=== PATIENT | female | born 1960 ===

== ENCOUNTER 2021-05-25 17:26 | Inpatient (IN) | payer SELFPAY ==
[~2021-05-25 17:26] MED LIST: Iopamidol-370 76% 500 ML 1 ML ONE
[2021-05-25] MEDS ORDERED: cefTRIAXone\\ROCEPHIN 2 GM VIAL ONE (17:56)
[2021-05-25] MEDS ORDERED: Azithromycin 500 MG VIAL ONE (17:56)
[2021-05-25 18:09] LABS: Hemoglobin 12.6 g/dL (12.0-16.0); Mean Corpuscular HGB CONC 33.2 g/dL (32.0-36.0); Mean Corpuscular Hemoglobin 29.1 pg (27.0-31.0); Mean Corpuscular Volume 87.6 fL (78.0-98.0); Mean Platelet Volume 8.6 fL (7.4-10.4); Platelet Count 389 thou/uL (130-400); RBC Distribution Width 12.4 % (11.5-14.5); Red Blood Cell (RBC) Count 4.33 mill/uL (4.20-5.40); White Blood Cell (WBC) Count 21.7 thou/uL (4.8-10.8)
[2021-05-25 18:18] LABS: ALT (SGPT) 11 U/L (8-55); AST (SGOT) 20 U/L (5-34); Albumin 3.9 g/dL (3.4-4.8); Alkaline Phosphatase 131 U/L (40-110); BUN (Urea Nitrogen) 29 mg/dL (9.8-20.1); Bilirubin, Total 0.3 mg/dL (0.2-1.2); Calc. Creatinine Clearance 0 mL/min (70-130); Calcium 10.8 mg/dL (7.8-10.44); Chloride 94 mmol/L (98-107); Globulin 5.2 g/dL (2.4-3.5); Glucose 429 mg/dL (80-115); Potassium 4.4 mmol/L (3.5-5.1); Protein, Total 9.1 g/dL (5.8-8.1); Sodium 130 mmol/L (136-145)
[2021-05-25 18:20] LABS: Carbon Dioxide Less than 8 mmol/L (23-31)
[2021-05-25 18:41] LABS: Band 24 % (5-11); Lymphocytes 7 % (21-51); MDiff Complete? YES; Metamyelocyte 4 % (0-0); Monocytes 7 % (0-10); Myelocyte 1 % (0-0); Neutrophil 56 % (42-75); Platelet Morphology Comment Appears Adequate; Polychromasia SLIGHT = 2-3 cells (100X) (0-2/hpf); Reactive Lymphocytes 1 % (0-10)
[2021-05-25 20:47] LABS: SARS-CoV-2 NAA Rapid Test Not Detected (NotDetected)
[2021-05-25 21:13] LABS: Lactic Acid 1.4 mmol/L (0.5-2.2)
[2021-05-25] MEDS ORDERED: NS 0.9% w/ 20 MEQ KCL 1,000 ML IV PRN ×3 (21:35→23:01)
[2021-05-25] MEDS ORDERED: Sodium Chloride 0.9% 1,000 ML IV PRN ×6 (21:35→23:01)
[2021-05-25] MEDS ORDERED: Electrolyte Replacement Protocol 1 EACH IVPB PRN ×2 (21:35→23:01)
[2021-05-25] MEDS ORDERED: Dextrose 5 %-0.45 % NaCl 1,000 ML IV PRN ×2 (21:35→23:01)
[2021-05-25] MEDS ORDERED: Vancomycin 1.5 GRAM/300 ML BAG 1.5 GM in Premix Bag 1 BAG IVPB SCH ×2 (21:38→22:15)
[2021-05-25] MEDS ORDERED: Acetaminophen 650 MG Suppository PR PRN (21:41)
[2021-05-25] MEDS ORDERED: Ondansetron PF 4 MG/2 ML Vial IVP PRN (21:41)
[2021-05-25] MEDS ORDERED: Ondansetron ODT 4 MG TAB PO PRN (21:41)
[2021-05-25] MEDS ORDERED: HUMULIN R 100 UNITS in Sodium Chloride 0.9% 100 ML IVPB SCH ×2 (21:45→23:15)
[2021-05-25] MEDS ORDERED: Meropenem 1 GM in Sodium Chloride 0.9% 100 ML IVPB SCH (22:00)
[2021-05-25] MEDS ORDERED: Rocuronium Bromide 10 MG/ML (10ML VIAL) ONE (22:04)
[2021-05-25 22:32] LABS: Actual Bicarbonate (HCO3a) 4.4 mEq/L (22-28); Analyzer IN Cardio ER; Base Excess (BEa) -25.9 mEq/L (-2.0 to +3.0); Calcium, Ionized (arterial) 1.31 mmol/L (1.12-1.30); Carboxyhemoglobin (COHb) 0.2 gm% (0.0-3.0); Hemoglobin (Hb) 11.7 g/dL (12.0-16.0); O2 Tension (PaO2), arterial 100.5 mmHg (> 80.0); Potassium - ABG Lab 4.31 mmol/L (3.70-5.30)
[2021-05-25 22:34] LABS: ALV-art Gradient 102.785 mmHg (0-20); CO2 Tension 19.9 mmHg (35.0-45.0); Puncture Site RRA; pH, Arterial 6.97 (7.35-7.45)
[2021-05-25 22:58] LABS: BUN (Urea Nitrogen) 29 mg/dL (9.8-20.1); Calc. Creatinine Clearance 0 mL/min (70-130); Calcium 9.6 mg/dL (7.8-10.44); Chloride 100 mmol/L (98-107); Glucose 448 mg/dL (80-115); Magnesium 2.7 mg/dL (1.6-2.6); Phosphorus 6.2 mg/dL (2.3-4.7); Potassium 4.6 mmol/L (3.5-5.1); Sodium 131 mmol/L (136-145)
[2021-05-25] MEDS ORDERED: Sodium Bicarbonate 150 MEQ in Sodium Chloride 0.45% 1,000 ML IV SCH (23:00)
[2021-05-25] MEDS ORDERED: D5 1/2 NS w/20 mEq KCL 1,000 ML IV PRN (23:01)
[2021-05-25 23:02] LABS: Carbon Dioxide Less than 8 mmol/L (23-31)
[2021-05-25] MEDS ORDERED: Sodium Bicarb 50 MEQ/50 ML Abboject 8.4% SYRINGE IVP SCH (23:15)
[2021-05-25] MEDS ORDERED: Morphine 2 MG/ML VIAL SLOW IVP PRN (23:30)
[2021-05-25] MEDS ORDERED: Fentanyl BOLUS 250 ML IVPB PRN (23:30)
[2021-05-25] MEDS ORDERED: Propofol BOLUS 1,000 MG/100 ML VIAL IV PRN (23:30)
[2021-05-25] MEDS: Propofol 1,000 MG/100 ML VIAL IV PRN (23:47)
[2021-05-25] MEDS: NS 0.9% w/ 20 MEQ KCL 1,000 ML IV PRN (23:48)
[2021-05-26 01:16] LABS: Actual Bicarbonate (HCO3a) 7.7 mEq/L (22-28); Base Excess (BEa) -22.6 mEq/L (-2.0 to +3.0); CO2 Tension 32.3 mmHg (35.0-45.0); Calcium, Ionized (arterial) 1.29 mmol/L (1.12-1.30); Hemoglobin (Hb) 11.2 g/dL (12.0-16.0); O2 Tension (PaO2), arterial 213.2 mmHg (> 80.0); Potassium - ABG Lab 3.59 mmol/L (3.70-5.30)
[2021-05-26 01:17] LABS: pH, Arterial 6.99 (7.35-7.45)
[2021-05-26 01:18] LABS: ALV-art Gradient 174.225 mmHg (0-20); Puncture Site LRA
[2021-05-26 01:50] LABS: BUN (Urea Nitrogen) 27 mg/dL (9.8-20.1); Calc. Creatinine Clearance 39 mL/min (70-130); Calcium 9.4 mg/dL (7.8-10.44); Chloride 105 mmol/L (98-107); Glucose 357 mg/dL (80-115); Potassium 3.3 mmol/L (3.5-5.1); Sodium 135 mmol/L (136-145)
[2021-05-26 01:54] LABS: Carbon Dioxide Less than 8 mmol/L (23-31)
[2021-05-26] MEDS: NS 0.9% w/ 20 MEQ KCL 1,000 ML IV PRN (02:05)
[2021-05-26] MEDS ORDERED: Sodium Bicarb 50 MEQ/50 ML Abboject 8.4% SYRINGE IVP SCH (02:15)
[2021-05-26] MEDS ORDERED: Potassium Chloride 40 MEQ in Premix Bag 1 BAG IVPB SCH ×2 (02:30→04:45)
[2021-05-26 04:10] LABS: Anion Gap 27 mmol/L (10-20); BUN (Urea Nitrogen) 27 mg/dL (9.8-20.1); Calc. Creatinine Clearance 42 mL/min (70-130); Calcium 9.1 mg/dL (7.8-10.44); Chloride 107 mmol/L (98-107); Glucose 274 mg/dL (80-115); Potassium 3.4 mmol/L (3.5-5.1); Sodium 139 mmol/L (136-145)
[2021-05-26 04:13] LABS: Carbon Dioxide 8 mmol/L (23-31)
[2021-05-26 04:23] LABS: Hemoglobin 11.2 g/dL (12.0-16.0); Mean Corpuscular HGB CONC 32.4 g/dL (32.0-36.0); Mean Corpuscular Hemoglobin 28.3 pg (27.0-31.0); Mean Corpuscular Volume 87.4 fL (78.0-98.0); Mean Platelet Volume 8.3 fL (7.4-10.4); Platelet Count 257 thou/uL (130-400); RBC Distribution Width 12.4 % (11.5-14.5); Red Blood Cell (RBC) Count 3.96 mill/uL (4.20-5.40); White Blood Cell (WBC) Count 16.1 thou/uL (4.8-10.8)
[2021-05-26 04:35] LABS: Bacteria/HPF None Seen HPF (None Seen); Bilirubin Negative (Negative); Blood, Urine 2+ (Negative); Clarity Clear (Clear); Glucose, Urine (Dipstick) Greater than 1000 mg/dL (Negative); Ketone, Urine Greater than 150 mg/dL (Negative); Leukocyte Negative Leu/uL (Negative); Nitrite Negative (Negative); Protein, Urine (Dipstick) 50 mg/dL (Neg-Trace); RBC/HPF 0-3 HPF (0-3); Specific Gravity, Urine 1.026 (1.002-1.036); Squamous Epithelial 0-3 HPF (0-3); Urobilinogen Normal mg/dL (Less than 2); WBC/HPF 0-3 HPF (0-3)
[2021-05-26 04:41] LABS: Urine Culture Reflex No No
[2021-05-26 05:29] LABS: Band 30 % (5-11); Lymphocytes 13 % (21-51); MDiff Complete? YES; Monocytes 4 % (0-10); Neutrophil 53 % (42-75)
[2021-05-26 05:34] LABS: Anion Gap 26 mmol/L (10-20); BUN (Urea Nitrogen) 27 mg/dL (9.8-20.1); Calc. Creatinine Clearance 43 mL/min (70-130); Calcium 8.9 mg/dL (7.8-10.44); Chloride 108 mmol/L (98-107); Glucose 240 mg/dL (80-115); Potassium 3.3 mmol/L (3.5-5.1); Sodium 140 mmol/L (136-145)
[2021-05-26] MEDS: Propofol 1,000 MG/100 ML VIAL IV PRN ×4 (05:35→22:01)
[2021-05-26 05:38] LABS: Carbon Dioxide 9 mmol/L (23-31)
[2021-05-26 07:17] LABS: Actual Bicarbonate (HCO3a) 12.7 mEq/L (22-28); Base Excess (BEa) -14.2 mEq/L (-2.0 to +3.0); CO2 Tension 33.5 mmHg (35.0-45.0); Calcium, Ionized (arterial) 1.22 mmol/L (1.12-1.30); Carboxyhemoglobin (COHb) 0.1 gm% (0.0-3.0); Hemoglobin (Hb) 10.5 g/dL (12.0-16.0); O2 Tension (PaO2), arterial 109.6 mmHg (> 80.0); Potassium - ABG Lab 3.73 mmol/L (3.70-5.30)
[2021-05-26 07:49] LABS: ALV-art Gradient 133.725 mmHg (0-20); Puncture Site LRA
[2021-05-26] MEDS ORDERED: Metoprolol Tartrate 5 MG/5 ML VIAL ONE (07:49)
[2021-05-26] MEDS ORDERED: Sodium Chloride 0.9% 1,000 ML IV SCH (08:15)
[2021-05-26] MEDS ORDERED: Metoprolol Tartrate 5 MG/5 ML VIAL IVP SCH (08:15)
[2021-05-26] MEDS ORDERED: Potassium Chloride 20 MEQ TAB PO SCH (08:15)
[2021-05-26] MEDS: D5 1/2 NS w/20 mEq KCL 1,000 ML IV PRN ×3 (08:55→17:38)
[2021-05-26] MEDS ORDERED: Cefepime 1 GM in Sodium Chloride 0.9% 100 ML IVPB SCH (09:00)
[2021-05-26] MEDS ORDERED: FLU VACC QS2021-22(6MOS UP)/PF 60 MCG/0.5 ML SYRINGE IM ONE (09:00)
[2021-05-26] MEDS: Enoxaparin Sodium 30 MG/0.3 ML SYRINGE SC SCH (09:02)
[2021-05-26 11:39] LABS: Anion Gap 19 mmol/L (10-20); BUN (Urea Nitrogen) 25 mg/dL (9.8-20.1); Calc. Creatinine Clearance 49 mL/min (70-130); Calcium 8.9 mg/dL (7.8-10.44); Carbon Dioxide 13 mmol/L (23-31); Chloride 112 mmol/L (98-107); Glucose 239 mg/dL (80-115); Potassium 4.1 mmol/L (3.5-5.1); Sodium 140 mmol/L (136-145)
[2021-05-26] MEDS ORDERED: CEFEPIME IVPB PRN (11:39)
[2021-05-26] MEDS: Diltiazem 125 MG in Sodium Chloride 0.9% 100 ML IVPB SCH (11:51)
[2021-05-26 11:53] LABS: Magnesium 2.2 mg/dL (1.6-2.6)
[2021-05-26] MEDS ORDERED: Meropenem 500 MG in Sodium Chloride 0.9% 100 ML IVPB SCH (13:00)
[2021-05-26 13:58] LABS: Anion Gap 17 mmol/L (10-20); BUN (Urea Nitrogen) 24 mg/dL (9.8-20.1); Calc. Creatinine Clearance 53 mL/min (70-130); Calcium 8.9 mg/dL (7.8-10.44); Carbon Dioxide 13 mmol/L (23-31); Chloride 114 mmol/L (98-107); Glucose 220 mg/dL (80-115); Potassium 4.3 mmol/L (3.5-5.1); Sodium 140 mmol/L (136-145)
[2021-05-26 17:39] LABS: Anion Gap 15 mmol/L (10-20); BUN (Urea Nitrogen) 21 mg/dL (9.8-20.1); Calc. Creatinine Clearance 60 mL/min (70-130); Calcium 8.7 mg/dL (7.8-10.44); Carbon Dioxide 15 mmol/L (23-31); Chloride 115 mmol/L (98-107); Glucose 180 mg/dL (80-115); Potassium 4.6 mmol/L (3.5-5.1); Sodium 140 mmol/L (136-145)
[2021-05-26] MEDS: Azithromycin 500 MG in Sodium Chloride 0.9% 250 ML 250 ML IVPB SCH (17:46)
[2021-05-26] MEDS ORDERED: Dextrose 50% Abboject 50 ML SYRINGE SLOW IVP PRN (18:14)
[2021-05-26] MEDS ORDERED: Dextrose 5% in Water 1,000 ML IV PRN (18:14)
[2021-05-26] MEDS ORDERED: Sodium Bicarbonate Tab 325 MG TAB PER TUBE PRN (18:15)
[2021-05-26] MEDS ORDERED: Pancrelipase DR 12,000 1 CAP FS PRN (18:15)
[2021-05-26] MEDS: Amiodarone 450 MG in Dextrose 5% in Water 250 ML IVPB SCH (18:20)
[2021-05-26] MEDS: D5 1/2 NS w/20 mEq KCL 1,000 ML IV SCH (18:25)
[2021-05-26] MEDS: Lantus 1000 UNITS/10 ML VIAL SC SCH ×2 (20:18→20:26)
[2021-05-26] MEDS: HumaLOG 300 UNITS/3 ML VIAL SC PRN ×2 (20:26→23:57)
[2021-05-26] MEDS: Acetaminophen 325 MG TAB PO PRN (20:26)
[2021-05-26] MEDS: fentaNYL Citrate/PF 2,000 MCG in Sodium Chloride 0.9% 60 ML IV SCH (21:41)
[2021-05-26] MEDS: Lorazepam 2 MG/ML VIAL SLOW IVP PRN (21:55)
[2021-05-26] MEDS: Vancomycin HCl 750 MG in Sodium Chloride 0.9% 250 ML 250 ML IVPB SCH (23:57)
[2021-05-27] MEDS: Diltiazem 125 MG in Sodium Chloride 0.9% 100 ML IVPB SCH (00:35)
[2021-05-27] MEDS: Amiodarone 450 MG in Dextrose 5% in Water 250 ML IVPB SCH ×2 (03:20→18:41)
[2021-05-27] MEDS: Propofol 1,000 MG/100 ML VIAL IV PRN ×4 (03:53→21:29)
[2021-05-27] MEDS: D5 1/2 NS w/20 mEq KCL 1,000 ML IV SCH (03:57)
[2021-05-27 04:16] LABS: Anion Gap 16 mmol/L (10-20); BUN (Urea Nitrogen) 21 mg/dL (9.8-20.1); Calc. Creatinine Clearance 54 mL/min (70-130); Calcium 8.5 mg/dL (7.8-10.44); Carbon Dioxide 13 mmol/L (23-31); Chloride 111 mmol/L (98-107); Glucose 387 mg/dL (80-115); Potassium 4.9 mmol/L (3.5-5.1); Sodium 135 mmol/L (136-145)
[2021-05-27] MEDS: HumaLOG 300 UNITS/3 ML VIAL SC PRN ×5 (04:47→23:56)
[2021-05-27] MEDS: Lactated Ringer's 1,000 ML IV SCH ×3 (07:48→23:57)
[2021-05-27 07:49] LABS: Hemoglobin 9.7 g/dL (12.0-16.0); Mean Corpuscular HGB CONC 33.8 g/dL (32.0-36.0); Mean Corpuscular Hemoglobin 28.6 pg (27.0-31.0); Mean Corpuscular Volume 84.8 fL (78.0-98.0); Mean Platelet Volume 8.4 fL (7.4-10.4); Platelet Count 269 thou/uL (130-400); RBC Distribution Width 12.8 % (11.5-14.5); Red Blood Cell (RBC) Count 3.37 mill/uL (4.20-5.40)
[2021-05-27] MEDS: Pantoprazole 40 MG VIAL IVP SCH (08:25)
[2021-05-27] MEDS: Enoxaparin Sodium 30 MG/0.3 ML SYRINGE SC SCH (08:25)
[2021-05-27] MEDS: Lantus 1000 UNITS/10 ML VIAL SC SCH ×2 (08:27→21:24)
[2021-05-27 08:52] LABS: Band 42 % (5-11); Lymphocytes 2 % (21-51); MDiff Complete? YES; Monocytes 3 % (0-10); Neutrophil 53 % (42-75); Platelet Morphology Comment Appears Adequate; Polychromasia SLIGHT = 2-3 cells (100X) (0-2/hpf); Vacuoles SLIGHT
[2021-05-27] MEDS ORDERED: Cefepime 1 GM in Sodium Chloride 0.9% 100 ML IVPB SCH (09:00)
[2021-05-27 10:40] LABS: Hemoglobin 9.7 g/dL (12.0-16.0); Platelet Count 279 thou/uL (130-400)
[2021-05-27] MEDS: Communication Order-Pharmacy FS SCH (11:13)
[2021-05-27 13:28] LABS: Anion Gap 12 mmol/L (10-20); BUN (Urea Nitrogen) 20 mg/dL (9.8-20.1); Calc. Creatinine Clearance 71 mL/min (70-130); Calcium 9.2 mg/dL (7.8-10.44); Carbon Dioxide 16 mmol/L (23-31); Chloride 112 mmol/L (98-107); Glucose 327 mg/dL (80-115); Potassium 4.3 mmol/L (3.5-5.1); Sodium 136 mmol/L (136-145)
[2021-05-27] MEDS: Lorazepam 2 MG/ML VIAL SLOW IVP PRN (13:50)
[2021-05-27] MEDS: fentaNYL Citrate/PF 2,000 MCG in Sodium Chloride 0.9% 60 ML IV SCH (16:20)
[2021-05-27] MEDS: Azithromycin 500 MG in Sodium Chloride 0.9% 250 ML 250 ML IVPB SCH (17:04)
[2021-05-27] MEDS: Enoxaparin Sodium 100 MG/ML SYRINGE SC SCH (21:22)
[2021-05-27] MEDS: Vancomycin HCl 750 MG in Sodium Chloride 0.9% 250 ML 250 ML IVPB SCH (23:57)
[2021-05-28] MEDS ORDERED: Vancomycin HCl 500 MG in Sodium Chloride 0.9% 100 ML IVPB SCH (01:15)
[2021-05-28] MEDS: Diltiazem 125 MG in Sodium Chloride 0.9% 100 ML IVPB SCH ×2 (01:57→11:52)
[2021-05-28] MEDS: Propofol 1,000 MG/100 ML VIAL IV PRN ×4 (03:06→20:32)
[2021-05-28 03:51] LABS: Anion Gap 10 mmol/L (10-20); BUN (Urea Nitrogen) 19 mg/dL (9.8-20.1); Calc. Creatinine Clearance 86 mL/min (70-130); Calcium 8.8 mg/dL (7.8-10.44); Carbon Dioxide 20 mmol/L (23-31); Chloride 111 mmol/L (98-107); Glucose 245 mg/dL (80-115); Potassium 4.3 mmol/L (3.5-5.1); Sodium 137 mmol/L (136-145)
[2021-05-28] MEDS: HumaLOG 300 UNITS/3 ML VIAL SC PRN ×4 (03:56→20:45)
[2021-05-28 05:32] LABS: Band 35 % (5-11); Lymphocytes 3 % (21-51); MDiff Complete? YES; Mean Corpuscular HGB CONC 32.6 g/dL (32.0-36.0); Mean Corpuscular Volume 85.8 fL (78.0-98.0); Monocytes 2 % (0-10); Neutrophil 60 % (42-75); Platelet Count 295 thou/uL (130-400); RBC Distribution Width 13.1 % (11.5-14.5); Red Blood Cell (RBC) Count 3.21 mill/uL (4.20-5.40); White Blood Cell (WBC) Count 31.3 thou/uL (4.8-10.8)
[2021-05-28] MEDS: Lactated Ringer's 1,000 ML IV SCH ×3 (09:12→16:11)
[2021-05-28] MEDS: Cefepime 1 GM in Sodium Chloride 0.9% 100 ML IVPB SCH ×2 (09:15→20:28)
[2021-05-28] MEDS: Pantoprazole 40 MG VIAL IVP SCH (09:15)
[2021-05-28] MEDS: Lantus 1000 UNITS/10 ML VIAL SC SCH ×2 (09:16→20:45)
[2021-05-28] MEDS: Enoxaparin Sodium 100 MG/ML SYRINGE SC SCH ×2 (09:16→20:28)
[2021-05-28] MEDS: Communication Order-Pharmacy FS SCH (10:20)
[2021-05-28] MEDS: fentaNYL Citrate/PF 2,000 MCG in Sodium Chloride 0.9% 60 ML IV SCH (12:26)
[2021-05-28] MEDS ORDERED: Dextrose 5% in Water 1,000 ML IV PRN (12:47)
[2021-05-28] MEDS ORDERED: Dextrose 50% Abboject 50 ML SYRINGE SLOW IVP PRN (12:47)
[2021-05-28] MEDS: Azithromycin 500 MG in Sodium Chloride 0.9% 250 ML 250 ML IVPB SCH (17:43)
[2021-05-28] MEDS: Lorazepam 2 MG/ML VIAL SLOW IVP PRN (22:14)
[2021-05-29] MEDS: Lactated Ringer's 1,000 ML IV SCH ×3 (01:36→11:19)
[2021-05-29] MEDS: Vancomycin HCl 1.25 GM in Sodium Chloride 0.9% 250 ML 250 ML IVPB SCH (01:36)
[2021-05-29] MEDS: Propofol 1,000 MG/100 ML VIAL IV PRN ×2 (02:59→09:11)
[2021-05-29] MEDS: Diltiazem 125 MG in Sodium Chloride 0.9% 100 ML IVPB SCH ×2 (03:02→14:51)
[2021-05-29 04:55] LABS: Hemoglobin 8.3 g/dL (12.0-16.0); Mean Corpuscular HGB CONC 32.5 g/dL (32.0-36.0); Mean Corpuscular Hemoglobin 28.4 pg (27.0-31.0); Mean Corpuscular Volume 87.3 fL (78.0-98.0); Mean Platelet Volume 8.3 fL (7.4-10.4); Platelet Count 293 thou/uL (130-400); RBC Distribution Width 13.4 % (11.5-14.5); Red Blood Cell (RBC) Count 2.93 mill/uL (4.20-5.40); White Blood Cell (WBC) Count 23.7 thou/uL (4.8-10.8)
[2021-05-29 05:13] LABS: Anion Gap 12 mmol/L (10-20); BUN (Urea Nitrogen) 13 mg/dL (9.8-20.1); Calc. Creatinine Clearance 116 mL/min (70-130); Calcium 8.7 mg/dL (7.8-10.44); Carbon Dioxide 21 mmol/L (23-31); Chloride 110 mmol/L (98-107); Glucose 144 mg/dL (80-115); Potassium 3.9 mmol/L (3.5-5.1); Sodium 139 mmol/L (136-145)
[2021-05-29] MEDS: Lorazepam 2 MG/ML VIAL SLOW IVP PRN ×2 (05:13→13:23)
[2021-05-29 05:31] LABS: Band 27 % (5-11); Lymphocytes 7 % (21-51); MDiff Complete? YES; Monocytes 3 % (0-10); Myelocyte 2 % (0-0); Neutrophil 61 % (42-75)
[2021-05-29 07:57] LABS: Base Excess (BEa) -2.5 mEq/L (-2.0 to +3.0); CO2 Tension 36.8 mmHg (35.0-45.0); Calcium, Ionized (arterial) 1.26 mmol/L (1.12-1.30); Carboxyhemoglobin (COHb) 0.2 gm% (0.0-3.0); Hemoglobin (Hb) 8.8 g/dL (12.0-16.0); O2 Tension (PaO2), arterial 80.6 mmHg (> 80.0); Potassium - ABG Lab 3.93 mmol/L (3.70-5.30)
[2021-05-29 08:07] LABS: Puncture Site LRA
[2021-05-29 09:00] LABS: Legionella Urinary Ag Negative (Negative)
[2021-05-29 09:01] LABS: Strep pneumo Urine Ag NEGATIVE (NEGATIVE)
[2021-05-29] MEDS: Cefepime 1 GM in Sodium Chloride 0.9% 100 ML IVPB SCH ×2 (09:03→20:27)
[2021-05-29] MEDS: Pantoprazole 40 MG VIAL IVP SCH (09:04)
[2021-05-29] MEDS: Enoxaparin Sodium 100 MG/ML SYRINGE SC SCH ×2 (09:04→20:26)
[2021-05-29] MEDS: HumaLOG 300 UNITS/3 ML VIAL SC PRN ×2 (09:05→12:52)
[2021-05-29] MEDS: Lantus 1000 UNITS/10 ML VIAL SC SCH ×2 (09:05→20:28)
[2021-05-29] MEDS: Communication Order-Pharmacy FS SCH (09:22)
[2021-05-29 12:17] LABS: SARS-CoV-2 PCR by NAA Not Detected (NotDetected)
[2021-05-29] MEDS: Amiodarone 450 MG in Dextrose 5% in Water 250 ML IVPB SCH (14:51)
[2021-05-29] MEDS: fentaNYL Citrate/PF 2,000 MCG in Sodium Chloride 0.9% 60 ML IV SCH (14:54)
[2021-05-29 15:58] LABS: SARS-CoV-2 IgG Spike Ab Interp Reactive (NonReactive)
[2021-05-29] MEDS: Azithromycin 500 MG in Sodium Chloride 0.9% 250 ML 250 ML IVPB SCH (17:02)
[2021-05-29] MEDS: Amiodarone 200 MG TAB PO SCH (20:27)
[2021-05-29] MEDS ORDERED: Lactated Ringer's 1,000 ML IV SCH (20:48)
[2021-05-29] MEDS ORDERED: Furosemide 40 MG/4 ML VIAL IVP SCH (21:00)
[2021-05-30] MEDS: Vancomycin HCl 1.25 GM in Sodium Chloride 0.9% 250 ML 250 ML IVPB SCH (02:16)
[2021-05-30 04:35] LABS: Anion Gap 9 mmol/L (10-20); BUN (Urea Nitrogen) 12 mg/dL (9.8-20.1); Calc. Creatinine Clearance 121 mL/min (70-130); Calcium 9.3 mg/dL (7.8-10.44); Carbon Dioxide 28 mmol/L (23-31); Chloride 106 mmol/L (98-107); Glucose 76 mg/dL (80-115); Potassium 3.5 mmol/L (3.5-5.1); Sodium 139 mmol/L (136-145)
[2021-05-30 05:05] LABS: Band 9 % (5-11); Eosinophils 1 % (0-10); Lymphocytes 6 % (21-51); MDiff Complete? YES; Mean Corpuscular HGB CONC 30.7 g/dL (32.0-36.0); Mean Corpuscular Hemoglobin 26.6 pg (27.0-31.0); Mean Corpuscular Volume 86.7 fL (78.0-98.0); Monocytes 7 % (0-10); Myelocyte 1 % (0-0); Neutrophil 76 % (42-75); Platelet Count 327 thou/uL (130-400); Platelet Morphology Comment Appears Adequate; RBC Morphology Normal; Red Blood Cell (RBC) Count 3.37 mill/uL (4.20-5.40); White Blood Cell (WBC) Count 16.2 thou/uL (4.8-10.8)
[2021-05-30 05:09] LABS: Vancomycin, Trough 42.7 ug/mL
[2021-05-30] MEDS ORDERED: Potassium Chloride 40 MEQ in Sodium Chloride 0.9% 250 ML 250 ML IVPB SCH (06:30)
[2021-05-30] MEDS: Furosemide 40 MG/4 ML VIAL SLOW IVP SCH ×2 (06:53→14:59)
[2021-05-30] MEDS: Cefepime 1 GM in Sodium Chloride 0.9% 100 ML IVPB SCH ×2 (08:46→21:22)
[2021-05-30] MEDS: Amiodarone 200 MG TAB PO SCH ×2 (08:46→21:23)
[2021-05-30] MEDS: Enoxaparin Sodium 100 MG/ML SYRINGE SC SCH ×2 (08:47→21:23)
[2021-05-30] MEDS: Pantoprazole 40 MG VIAL IVP SCH (08:48)
[2021-05-30] MEDS: Lantus 1000 UNITS/10 ML VIAL SC SCH ×2 (09:43→21:25)
[2021-05-30] MEDS: Communication Order-Pharmacy FS SCH (14:59)
[2021-05-30] MEDS: Azithromycin 500 MG in Sodium Chloride 0.9% 250 ML 250 ML IVPB SCH (17:43)
[2021-05-31 01:07] LABS: Vancomycin, Trough 15.3 ug/mL
[2021-05-31] MEDS: Vancomycin HCl 1.25 GM in Sodium Chloride 0.9% 250 ML 250 ML IVPB SCH (02:09)
[2021-05-31 04:36] LABS: Anion Gap 13 mmol/L (10-20); BUN (Urea Nitrogen) 18 mg/dL (9.8-20.1); Calc. Creatinine Clearance 99 mL/min (70-130); Calcium 8.8 mg/dL (7.8-10.44); Carbon Dioxide 28 mmol/L (23-31); Chloride 102 mmol/L (98-107); Glucose 105 mg/dL (80-115); Potassium 3.7 mmol/L (3.5-5.1); Sodium 139 mmol/L (136-145)
[2021-05-31 05:05] LABS: Band 5 % (5-11); Hemoglobin 8.6 g/dL (12.0-16.0); Lymphocytes 8 % (21-51); MDiff Complete? YES; Mean Corpuscular HGB CONC 32.2 g/dL (32.0-36.0); Mean Corpuscular Volume 86.9 fL (78.0-98.0); Mean Platelet Volume 7.9 fL (7.4-10.4); Monocytes 7 % (0-10); Myelocyte 4 % (0-0); Neutrophil 76 % (42-75); Platelet Count 317 thou/uL (130-400); Platelet Morphology Comment Appears Adequate; RBC Distribution Width 12.8 % (11.5-14.5); RBC Morphology Normal; Red Blood Cell (RBC) Count 3.07 mill/uL (4.20-5.40); White Blood Cell (WBC) Count 13.2 thou/uL (4.8-10.8)
[2021-05-31] MEDS: Furosemide 40 MG/4 ML VIAL SLOW IVP SCH ×2 (05:05→14:40)
[2021-05-31 07:31] LABS: Base Excess (BEa) 8.4 mEq/L (-2.0 to +3.0); CO2 Tension 40.8 mmHg (35.0-45.0); Calcium, Ionized (arterial) 1.15 mmol/L (1.12-1.30); Carboxyhemoglobin (COHb) 0.4 gm% (0.0-3.0); O2 Tension (PaO2), arterial 97.8 mmHg (> 80.0); Potassium - ABG Lab 3.83 mmol/L (3.70-5.30); pH, Arterial 7.51 (7.35-7.45)
[2021-05-31 07:42] LABS: Puncture Site LRA
[2021-05-31] MEDS: Amiodarone 200 MG TAB PO SCH ×2 (08:48→20:48)
[2021-05-31] MEDS: Cefepime 1 GM in Sodium Chloride 0.9% 100 ML IVPB SCH ×2 (08:48→20:48)
[2021-05-31] MEDS: Enoxaparin Sodium 100 MG/ML SYRINGE SC SCH ×2 (08:49→20:48)
[2021-05-31] MEDS: Pantoprazole 40 MG VIAL IVP SCH (08:49)
[2021-05-31] MEDS: Lantus 1000 UNITS/10 ML VIAL SC SCH ×2 (08:50→21:45)
[2021-05-31] MEDS: Communication Order-Pharmacy FS SCH (14:37)
[2021-06-01 04:02] LABS: Anion Gap 11 mmol/L (10-20); BUN (Urea Nitrogen) 23 mg/dL (9.8-20.1); Calc. Creatinine Clearance 87 mL/min (70-130); Carbon Dioxide 35 mmol/L (23-31); Chloride 96 mmol/L (98-107); Glucose 142 mg/dL (80-115); Potassium 3.2 mmol/L (3.5-5.1); Sodium 139 mmol/L (136-145)
[2021-06-01 04:12] LABS: Band 3 % (5-11); Eosinophils 3 % (0-10); Hemoglobin 8.9 g/dL (12.0-16.0); Lymphocytes 15 % (21-51); MDiff Complete? YES; Mean Corpuscular HGB CONC 32.8 g/dL (32.0-36.0); Mean Corpuscular Hemoglobin 28.5 pg (27.0-31.0); Mean Corpuscular Volume 86.9 fL (78.0-98.0); Mean Platelet Volume 7.6 fL (7.4-10.4); Monocytes 10 % (0-10); Myelocyte 3 % (0-0); Neutrophil 66 % (42-75); Platelet Count 321 thou/uL (130-400); Platelet Morphology Comment Appears Adequate; RBC Distribution Width 12.4 % (11.5-14.5); RBC Morphology Normal; Red Blood Cell (RBC) Count 3.11 mill/uL (4.20-5.40); White Blood Cell (WBC) Count 10.1 thou/uL (4.8-10.8)
[2021-06-01] MEDS ORDERED: Potassium Bicarbonate/Cit Ac 20 MEQ TAB PER TUBE SCH (05:00)
[2021-06-01] MEDS: Furosemide 40 MG/4 ML VIAL SLOW IVP SCH ×2 (05:06→13:13)
[2021-06-01] MEDS: Communication Order-Pharmacy FS SCH (07:17)
[2021-06-01 07:42] LABS: Actual Bicarbonate (HCO3a) 35.8 mEq/L (22-28); Base Excess (BEa) 12.2 mEq/L (-2.0 to +3.0); CO2 Tension 42.4 mmHg (35.0-45.0); Carboxyhemoglobin (COHb) 0.5 gm% (0.0-3.0); Hemoglobin (Hb) 8.5 g/dL (12.0-16.0); O2 Tension (PaO2), arterial 102.3 mmHg (> 80.0); Potassium - ABG Lab 3.58 mmol/L (3.70-5.30); pH, Arterial 7.54 (7.35-7.45)
[2021-06-01 07:54] LABS: Puncture Site LRA
[2021-06-01] MEDS: Cefepime 1 GM in Sodium Chloride 0.9% 100 ML IVPB SCH ×2 (08:34→20:14)
[2021-06-01] MEDS: Pantoprazole 40 MG VIAL IVP SCH (08:37)
[2021-06-01] MEDS: Enoxaparin Sodium 100 MG/ML SYRINGE SC SCH ×2 (08:37→20:13)
[2021-06-01] MEDS: Amiodarone 200 MG TAB PO SCH ×2 (08:38→20:13)
[2021-06-01] MEDS: Lantus 1000 UNITS/10 ML VIAL SC SCH ×2 (08:38→20:30)
[2021-06-01] MEDS: HumaLOG 300 UNITS/3 ML VIAL SC PRN (10:42)
[2021-06-01] MEDS ORDERED: Potassium Chloride 40 MEQ in Sodium Chloride 0.9% 250 ML 250 ML IVPB SCH (14:00)
[2021-06-02 01:16] LABS: Vancomycin, Trough 8.7 ug/mL
[2021-06-02] MEDS: Acetaminophen 325 MG TAB PO PRN ×2 (04:40→09:02)
[2021-06-02 04:57] LABS: Band 1 % (5-11); Eosinophils 6 % (0-10); Hemoglobin 8.7 g/dL (12.0-16.0); Lymphocytes 11 % (21-51); MDiff Complete? YES; Mean Corpuscular Hemoglobin 28.3 pg (27.0-31.0); Mean Corpuscular Volume 88.4 fL (78.0-98.0); Mean Platelet Volume 7.9 fL (7.4-10.4); Monocytes 12 % (0-10); Myelocyte 3 % (0-0); Neutrophil 67 % (42-75); Platelet Count 349 thou/uL (130-400); Platelet Morphology Comment Appears Adequate; RBC Distribution Width 12.7 % (11.5-14.5); RBC Morphology Normal; Red Blood Cell (RBC) Count 3.06 mill/uL (4.20-5.40); White Blood Cell (WBC) Count 11.9 thou/uL (4.8-10.8)
[2021-06-02 05:00] LABS: Anion Gap 13 mmol/L (10-20); BUN (Urea Nitrogen) 27 mg/dL (9.8-20.1); Calc. Creatinine Clearance 80 mL/min (70-130); Calcium 9.4 mg/dL (7.8-10.44); Carbon Dioxide 35 mmol/L (23-31); Chloride 92 mmol/L (98-107); Glucose 100 mg/dL (80-115); Potassium 3.8 mmol/L (3.5-5.1); Sodium 136 mmol/L (136-145)
[2021-06-02] MEDS: Furosemide 40 MG/4 ML VIAL SLOW IVP SCH ×2 (06:05→13:54)
[2021-06-02 08:37] LABS: SARS-CoV-2 PCR by NAA Not Detected (NotDetected)
[2021-06-02] MEDS: Amiodarone 200 MG TAB PO SCH ×2 (09:00→20:44)
[2021-06-02] MEDS: Cefepime 1 GM in Sodium Chloride 0.9% 100 ML IVPB SCH (09:03)
[2021-06-02] MEDS: Enoxaparin Sodium 100 MG/ML SYRINGE SC SCH ×2 (09:04→20:44)
[2021-06-02] MEDS: Pantoprazole 40 MG VIAL IVP SCH (09:05)
[2021-06-02] MEDS: Lantus 1000 UNITS/10 ML VIAL SC SCH ×2 (09:05→21:00)
[2021-06-02] MEDS: Communication Order-Pharmacy FS SCH (13:54)
[2021-06-02] MEDS: HumaLOG 300 UNITS/3 ML VIAL SC PRN (16:32)
[2021-06-02] MEDS: Metoprolol Tartrate 25 MG TAB PO SCH (16:41)
[2021-06-03] MEDS: Metoprolol Tartrate 25 MG TAB PO SCH ×5 (00:49→23:31)
[2021-06-03 04:07] LABS: Anion Gap 15 mmol/L (10-20); BUN (Urea Nitrogen) 23 mg/dL (9.8-20.1); Calc. Creatinine Clearance 71 mL/min (70-130); Calcium 9.4 mg/dL (7.8-10.44); Carbon Dioxide 35 mmol/L (23-31); Chloride 91 mmol/L (98-107); Glucose 187 mg/dL (80-115); Potassium 3.8 mmol/L (3.5-5.1); Sodium 137 mmol/L (136-145)
[2021-06-03 04:16] LABS: Band 7 % (5-11); Eosinophils 3 % (0-10); Hemoglobin 8.7 g/dL (12.0-16.0); Lymphocytes 13 % (21-51); MDiff Complete? YES; Mean Corpuscular HGB CONC 32.8 g/dL (32.0-36.0); Mean Corpuscular Hemoglobin 28.8 pg (27.0-31.0); Mean Corpuscular Volume 87.8 fL (78.0-98.0); Mean Platelet Volume 7.7 fL (7.4-10.4); Monocytes 9 % (0-10); Myelocyte 4 % (0-0); Neutrophil 64 % (42-75); Platelet Count 368 thou/uL (130-400); Platelet Morphology Comment Appears Adequate; RBC Distribution Width 12.4 % (11.5-14.5); RBC Morphology Normal; Red Blood Cell (RBC) Count 3.03 mill/uL (4.20-5.40); White Blood Cell (WBC) Count 11.8 thou/uL (4.8-10.8)
[2021-06-03] MEDS: Furosemide 40 MG/4 ML VIAL SLOW IVP SCH ×2 (06:35→13:24)
[2021-06-03] MEDS: HumaLOG 300 UNITS/3 ML VIAL SC PRN ×3 (06:40→20:17)
[2021-06-03] MEDS: Amiodarone 200 MG TAB PO SCH ×2 (08:38→20:15)
[2021-06-03] MEDS: Lantus 1000 UNITS/10 ML VIAL SC SCH ×2 (08:38→20:15)
[2021-06-03] MEDS: Enoxaparin Sodium 100 MG/ML SYRINGE SC SCH ×2 (08:38→20:14)
[2021-06-03] MEDS: Communication Order-Pharmacy FS SCH (08:39)
[2021-06-04 03:51] LABS: Hemoglobin 8.6 g/dL (12.0-16.0); Mean Corpuscular HGB CONC 32.8 g/dL (32.0-36.0); Mean Corpuscular Hemoglobin 28.5 pg (27.0-31.0); Mean Corpuscular Volume 86.9 fL (78.0-98.0); Mean Platelet Volume 7.4 fL (7.4-10.4); Platelet Count 387 thou/uL (130-400); RBC Distribution Width 12.4 % (11.5-14.5); Red Blood Cell (RBC) Count 3.02 mill/uL (4.20-5.40)
[2021-06-04 04:06] LABS: Anion Gap 14 mmol/L (10-20); BUN (Urea Nitrogen) 19 mg/dL (9.8-20.1); Calc. Creatinine Clearance 75 mL/min (70-130); Calcium 9.4 mg/dL (7.8-10.44); Carbon Dioxide 35 mmol/L (23-31); Chloride 92 mmol/L (98-107); Glucose 123 mg/dL (80-115); Potassium 3.4 mmol/L (3.5-5.1); Sodium 138 mmol/L (136-145)
[2021-06-04 04:34] LABS: Band 8 % (5-11); Eosinophils 1 % (0-10); Hypochromia SLIGHT = 6-15 cells (100X) (0-5/hpf); Lymphocytes 12 % (21-51); MDiff Complete? YES; Monocytes 12 % (0-10); Myelocyte 1 % (0-0); Neutrophil 65 % (42-75); Platelet Morphology Comment Appears Adequate; Polychromasia SLIGHT = 2-3 cells (100X) (0-2/hpf); Stomatocytes SLIGHT = 2-5 cells (100X) (0-1/hpf)
[2021-06-04] MEDS: Furosemide 40 MG/4 ML VIAL SLOW IVP SCH ×2 (05:11→14:48)
[2021-06-04] MEDS: Metoprolol Tartrate 25 MG TAB PO SCH ×3 (05:12→17:19)
[2021-06-04] MEDS ORDERED: Potassium Bicarbonate/Cit Ac 20 MEQ TAB PER TUBE SCH (05:15)
[2021-06-04] MEDS ORDERED: Potassium Bicarbonate/Cit Ac 20 MEQ TAB PO SCH (05:15)
[2021-06-04 05:26] VITALS: BMI 36.6
[2021-06-04] MEDS: Amiodarone 200 MG TAB PO SCH ×2 (08:04→20:57)
[2021-06-04] MEDS: Enoxaparin Sodium 100 MG/ML SYRINGE SC SCH (08:04)
[2021-06-04] MEDS: Lantus 1000 UNITS/10 ML VIAL SC SCH (08:05)
[2021-06-04] MEDS: HumaLOG 300 UNITS/3 ML VIAL SC PRN (17:23)
[2021-06-04] MEDS: Apixaban 5 MG TAB PO SCH (20:57)
[2021-06-05] MEDS: Lantus 1000 UNITS/10 ML VIAL SC SCH ×3 (00:39→08:34)
[2021-06-05] MEDS: Metoprolol Tartrate 25 MG TAB PO SCH ×3 (01:32→13:10)
[2021-06-05] MEDS: Furosemide 40 MG/4 ML VIAL SLOW IVP SCH ×2 (05:54→13:12)
[2021-06-05] MEDS: Apixaban 5 MG TAB PO SCH (08:33)
[2021-06-05] MEDS: Amiodarone 200 MG TAB PO SCH (08:33)
[2021-06-05 11:18] LABS: Anion Gap 14 mmol/L (10-20); BUN (Urea Nitrogen) 17 mg/dL (9.8-20.1); Calc. Creatinine Clearance 70 mL/min (70-130); Calcium 9.3 mg/dL (7.8-10.44); Carbon Dioxide 33 mmol/L (23-31); Chloride 91 mmol/L (98-107); Glucose 181 mg/dL (80-115); Potassium 3.2 mmol/L (3.5-5.1); Sodium 135 mmol/L (136-145)
[2021-06-05 11:28] LABS: Band 2 % (5-11); Eosinophils 1 % (0-10); Hemoglobin 9.4 g/dL (12.0-16.0); Lymphocytes 8 % (21-51); MDiff Complete? YES; Mean Corpuscular HGB CONC 31.8 g/dL (32.0-36.0); Mean Corpuscular Hemoglobin 27.9 pg (27.0-31.0); Mean Corpuscular Volume 87.7 fL (78.0-98.0); Mean Platelet Volume 7.2 fL (7.4-10.4); Monocytes 4 % (0-10); Neutrophil 85 % (42-75); Platelet Count 428 thou/uL (130-400); Platelet Morphology Comment Appears Increased; Polychromasia SLIGHT = 2-3 cells (100X) (0-2/hpf); RBC Distribution Width 12.4 % (11.5-14.5); Red Blood Cell (RBC) Count 3.37 mill/uL (4.20-5.40); White Blood Cell (WBC) Count 9.6 thou/uL (4.8-10.8)
[2021-06-05 12:02] VITALS: BP 129/68; TEMP 98
[2021-06-05] MEDS ORDERED: Potassium Bicarbonate/Cit Ac 20 MEQ TAB PER TUBE SCH (12:45)
== END 2021-06-05 14:56 | disposition home or self-care (01) | DRG 870 ==
LOC: ERS 17:26 → CCU 21:24 → IMCU/EMU 06-02 18:31 → T4-B 06-04 13:59
PROVIDERS: ADMIT Student in an Organized Health Care Education/Training Program; ATTEND Hospitalist
PROC: 0BH17EZ Insertion of Endotracheal Airway into Trachea, Via Natural or Artificial Opening (ICD-10-PCS; principal; 2021-05-25)
PROC: 5A1955Z Respiratory Ventilation, Greater than 96 Consecutive Hours (ICD-10-PCS; 2021-05-25)
PROC: 0D9670Z Drainage of Stomach with Drainage Device, Via Natural or Artificial Opening (ICD-10-PCS; 2021-05-25)
DX: A41.89 Other specified sepsis (principal); E11.10 Type 2 diabetes mellitus with ketoacidosis without coma; J96.01 Acute respiratory failure with hypoxia; G93.41 Metabolic encephalopathy; J12.2 Parainfluenza virus pneumonia; N17.9 Acute kidney failure, unspecified; I42.8 Other cardiomyopathies; Z20.822 Contact with and (suspected) exposure to COVID-19; R65.20 Severe sepsis without septic shock; K80.20 Calculus of gallbladder without cholecystitis without obstruction; I48.91 Unspecified atrial fibrillation; I10 Essential (primary) hypertension; E78.5 Hyperlipidemia, unspecified; E87.8 Other disorders of electrolyte and fluid balance, not elsewhere classified; E66.01 Morbid (severe) obesity due to excess calories; Z68.36 Body mass index [BMI] 36.0-36.9, adult; Z79.84 Long term (current) use of oral hypoglycemic drugs; Z79.82 Long term (current) use of aspirin; Z79.899 Other long term (current) drug therapy; Z78.1 Physical restraint status
CPT/HCPCS: 0240U; 31500; 36415; 36416; 36600; 51702; 71045; 74177; 80048; 80053; 80202; 81001; 82010; 82805; 83605; 83735; 83880; 84100; 84145; 84443; 84484; 85007; 85025; 85027; 86769; 87040; 87449; 87633; 87798; 87899; 93005; 93010; 93306; 94002; 94003; 94640; 96365; 96366; 96367; 96375; C9113; J0282; J0456; J0692; J0696; J1650; J1815; J1940; J2060; J2185; J2704; J3010; J3370; J3480; J3490; J7042; J7050; J7070; J7120; J7620; Q9967; U0003; U0005